=== PATIENT | female | born 2000 | race Caucasian/White ===

== ENCOUNTER 2019-06-07 19:09 | Emergency (ER) | payer OTHER, MEDICAID, SELFPAY ==
[2019-06-07 19:13] VITALS: BP 113/76; PULSE 95; RESP 16; TEMP 36.4; O2SAT 100; BMI 26.9
[2019-06-07 19:48] LABS: Amorphous Sediment Urine 1+; Bacteria Urine Moderate (10-30); Culture Indicated Urine Specimen Cultured; Mucus Urine 2+ (Negative); RBC Urine 0-1/HPF (0-5/HPF); Squamous Epithelial Cell Urine 1-5 /HPF (0-5/HPF); WBC Urine 5-10/HPF (0-5/HPF)
--- NOTE | 2019-06-07 20:25 | ED.PREGNANCY ---
HPI - General Chief complaint: OB/Uterine Contractions Stated complaint: 13 WKS CRAMPING Time Seen by Provider: 06/07/19 20:25 Source: patient Mode of arrival: Ambulatory Limitations: no limitations History of Present Illness HPI Narrative: The patient is , currently 13 weeks . She presents with lower abdominal cramping, specifically RLQ. She has nausea with decreased appetite. She has no emesis. She has no diarrhea constipation. She denies dysuria. She has had no vaginal discharge or vaginal bleeding. She denies fever chills. The pain has been ongoing, persistent. She was seen at [facility] yesterday with the same complaints. Ultrasound revealed a living 13 week IUP. It is noted that there was evidence of a bleed on a prior ultrasound, that concern has resolved. Related Data Previous Rx's Medication Instructions Recorded ketorolac 10 mg tablet 10 mg PO ONCE #7 tab 03/06/18 Allergies Allergy/AdvReac Type Severity Reaction Status Date / Time amoxicillin [From AUGMENTIN] Allergy Intermediate Rash Verified 03/06/18 19:34 Penicillins Allergy Intermediate Itchy Verified 03/06/18 19:34 clavulanic acid Allergy Unknown Verified 03/06/18 19:34 [From AUGMENTIN] Review of Systems Review of Systems ROS Unobtainable: All systems reviewed & are unremarkable except as noted in HPI and below Constitutional Constitutional: Denies chills, Denies fever(s), Denies lethargy and Denies weakness ENT Ears, Nose, Mouth, and Throat: Denies vertigo, Denies dizziness and Denies sore throat Cardiovascular Cardiovascular: Reports chest pain (Lower sternal), Denies irregular heart rhythm, Denies lightheadedness, Denies palpitations, Denies dyspnea and Denies orthopnea Respiratory Respiratory: Denies cough, Denies dyspnea and Denies wheezing Gastrointestinal Gastrointestinal: Reports abdominal pain (Epigastric pain. RLQ pain.), Denies change in bowel habits, Denies diarrhea, Denies nausea and Denies vomiting Musculoskeletal Musculoskeletal: Reports back pain (Right lumbar back.) Integumentary/Breasts Skin/Breast: Denies pruritus, Denies erythema, Denies rash and Denies wounds Neurologic Neurologic: Denies vertigo, Denies dizziness and Denies weakness Endocrine Endocrine: Denies palpitations Allergic/Immunologic Allergic/Immunologic: Denies wheezing PMFSH - Past Medical History Medical history: Reports no medical history Surgical history: Reports no surgical history Family History Family history: Reports no significant family history Exam Initial Vital Signs Initial Vital Signs: Vital Signs Temperature 97.6 F 06/07/19 19:13 Pulse Rate 95 H 06/07/19 19:13 Respiratory Rate 16 06/07/19 19:13 Blood Pressure 113/76 06/07/19 19:13 Pulse Oximetry 100 06/07/19 19:13 Const General: cooperative and well developed Nutritional Appearance: well nourished Orientation: alert, awake, oriented x3 and not confused [facility] Head: normocephalic and atraumatic Neck Neck: full ROM and No tender Chest Other: Xyphoid tenderness Resp Effort & Inspection: normal respiratory effort and able to speak in complete sentences Auscultation: clear to auscultation bilaterally, no rales, no rhonchi and no wheezes Cardio Rate: regular rate Rhythm: regular rhythm Heart Sounds: S1 normal, S2 normal, no click, no gallops, no murmurs and no rubs Pulses: normal peripheral pulses GI Palpation: soft and no hepatosplenomegaly Auscultation: normal bowel sounds Other: Epigastric tenderness at the xiphoid process, without guarding or rebound. Right lower quadrant tenderness without distention, guarding or rebound. FHT 166. Back/Spine/Pelvis Back: No CVA tenderness Skin General: no rashes or lesions noted and No petechiae Neuro General: alert, oriented x3, gait normal and no focal motor deficits Speech: speech normal Extrem General: full ROM, no clubbing, cyanosis or edema, no pedal edema and no calf tenderness Psych Appearance: well kempt Mental Status: mental status grossly normal Attitude: cooperative Thought Content: normal and suicidality Judgment: judgment good Course Course Course Narrative: She has ongoing epigastric pain, but nausea has lessened. Ultrasound indicates healthy IUP. Labs other than a slightly lower potassium otherwise normal. Orders Ordered: ED Orders 06/07/19 19:25 Urine Culture Stat Urine Microscopic Stat 06/07/19 20:40 Complete Blood Count AUTO DIFF Stat Comprehensive Metabolic Panel Stat Lipase Stat Discontinued Medications Acetaminophen (Tylenol) 650 mg PO NOW ONE Stop: 06/07/19 20:39 Last Admin: 06/07/19 20:52 Dose: 650 mg Documented by: JOE Sodium Chloride (Normal Saline 0.9%) 1,000 mls @ 1,000 mls/hr IV BOLUS ONE Stop: 06/07/19 21:37 Last Infusion: 06/07/19 21:51 Dose: 0 mls/hr Documented by: Admin: 06/07/19 20:52 Dose: 1,000 mls/hr Documented by: JOE Ondansetron HCl (Zofran) 4 mg IV NOW ONE Stop: 06/07/19 20:39 Last Admin: 06/07/19 20:52 Dose: 4 mg Documented by: JOE Vital Signs Vital signs: Vital Signs - 8 hr 06/07/19 19:13 Temperature 97.6 F Pulse Rate 95 H Respiratory Rate 16 Blood Pressure 113/76 Pulse Oximetry 100 MDM - OB/Uterine Contractions Lab Data Result diagrams: 06/07/19 20:40 06/07/19 20:40 Labs: Lab Results 06/07/19 06/07/19 06/07/19 Range/Units 19:25 20:40 20:40 WBC 9.9 (4.5-11.0) X10^3/uL RBC 4.28 (4.0-5.2) X10^6/uL Hgb 13.3 (12.0-16.0) g/dL Hct 38.1 (36-46) % MCV 88.9 (80-100) fL MCH 31.2 (26-34) PG MCHC 35.1 (30-36) % RDW 13.1 (11.6-14.8) % Plt Count 261 (150-400) X10^3/uL Neut % (Auto) 65.6 (50-75) % Lymph % (Auto) 24.8 L (25-40) % [place] % (Auto) 8.6 (3-14) % Eos % (Auto) 0.4 L (2-4) % Baso % (Auto) 0.6 (0-2) % Neut # (Auto) 6500 (3938-3956) /uL Lymph # (Auto) 2500 (3705-7927) /uL [place] # (Auto) 900 (0-900) /uL Eos # (Auto) 0 (0-450) /uL Baso # (Auto) 100 (0-100) /uL Sodium 137 (137-145) mmol/L Potassium 3.3 L (3.4-5.1) mmol/L Chloride 103 (98-107) mmol/L Carbon Dioxide 24 (22-32) mmol/L BUN 6 L (7-17) mg/dL Creatinine 0.40 L (0.52-1.04) mg/dL Estimated GFR > 60.0 (>60) mL/min BUN/Creatinine Ratio 15.0 (6-22) Glucose 80 (70-100) mg/dL Calcium 9.6 (8.4-10.2) mg/dL Total Bilirubin 0.4 (0.2-1.3) mg/dL AST 23 (14-36) IU/L ALT 13 (<35) IU/L Alkaline Phosphatase 40 (38-126) U/L Total Protein 7.5 (6.3-8.2) g/dL Albumin 4.4 (3.5-5.0) g/dL Globulin 3.1 (1.7-4.1) g/dL Albumin/Globulin Ratio 1.4 (1.0-2.8) Lipase 71 (23-300) U/L Urine RBC 0-1/hpf (0-5/HPF) Urine WBC 5-10/hpf H (0-5/HPF) Ur Squamous Epith Cells 1-5 /hpf (0-5/HPF) Amorphous Sediment 1+ Urine Bacteria Moderate (10-30) H (None) Urine Mucus 2+ H (Negative) Ur Culture Indicated? Specimen cultured Urine Dip Bedside Urine Glucose Negative Bedside Urine Bilirubin - Negative Bedside Urine Ketone +++ 80 Urine Specific [place] 1.015 Bedside Urine Occult Blood +/- Bedside Urine pH 6.0 Bedside Urine Protein - Negative Bedside Urine Urobilinogen - Negative Bedside Urine Nitrite - Negative Bedside Urine Leukocytes +++ 500 Esterase Discharge Plan Departure Patient Disposition: Home Clinical Impression: 13 weeks gestation of Instructions: DI for -- Discomforts and Remedies Activity Restrictions/Additional Instructions: Tylenol 2 tablets every 4 hours as needed for stomach ache. The pain that she were concerned about his chest pain is actually stomach pain. Be sure you are drinking plenty of fluids in eating well. Zofran every 4 hours as needed for nausea. You may also take Tums for stomach upset. Follow-up with her doctor next week for further evaluation if necessary. Prescriptions: No Action ketorolac 10 mg tablet 10 mg PO ONCE Qty: 7 RF: 0
[2019-06-07 20:50] LABS: Add Manual Diff / Slide Review NO; Basophils Absolute Auto 100 /uL (0-100); Basophils Percent Auto 0.6 % (0-2); Eosinophils Absolute Auto 0 /uL (0-450); Eosinophils Percent Auto 0.4 % (2-4); Hematocrit 38.1 % (36-46); Hemoglobin 13.3 g/dL (12.0-16.0); Lymphocytes Absolute Auto 2500 /uL (1100-4500); Lymphocytes Percent Auto 24.8 % (25-40); Mean Corpuscular HGB Conc 35.1 % (30-36); Mean Corpuscular Hemoglobin 31.2 PG (26-34); Mean Corpuscular Volume 88.9 fL (80-100); Monocytes Absolute Auto 900 /uL (0-900); Monocytes Percent Auto 8.6 % (3-14); Neutrophils Absolute Auto 6500 /uL (1500-7000); Neutrophils Percent Auto 65.6 % (50-75); Platelet Count 261 X10^3/uL (150-400); Red Blood Cell Count 4.28 X10^6/uL (4.0-5.2); Red Cell Distribution Width 13.1 % (11.6-14.8); White Blood Cell Count 9.9 X10^3/uL (4.5-11.0)
[2019-06-07] MEDS: ACETAMINOPHEN 325 MG TABLET 650 MG PO (20:52)
[2019-06-07] MEDS: SODIUM CHLORIDE 0.9% 1,000 ML 1000 ML IV (20:52)
[2019-06-07] MEDS: ONDANSETRON 4 MG/2 ML INJ IV (20:52)
[2019-06-07 20:59] LABS: Alanine Aminotransferase 13 IU/L (<35); Albumin 4.4 g/dL (3.5-5.0); Albumin Globulin Ratio 1.4 (1.0-2.8); Alkaline Phosphatase 40 U/L (38-126); Aspartate Aminotransferase 23 IU/L (14-36); Bilirubin Total 0.4 mg/dL (0.2-1.3); Blood Urea Nitrogen 6 mg/dL (7-17); Calcium 9.6 mg/dL (8.4-10.2); Carbon Dioxide 24 mmol/L (22-32); Chloride 103 mmol/L (98-107); Estimated Glomerular Filt Rate > 60.0 mL/min (>60); Globulin 3.1 g/dL (1.7-4.1); Glucose 80 mg/dL (70-100); HEMOLYSIS < 15 (0-50); Lipase 71 U/L (23-300); Potassium 3.3 mmol/L (3.4-5.1); Sodium 137 mmol/L (137-145); Total Protein 7.5 g/dL (6.3-8.2)
--- NOTE | 2019-06-07 21:38 | PC.NURSE ---
patient reports that she is still nauseous. has not vomited. provider notified and no new orders at this time.
[2019-06-07 22:20] VITALS: BP 104/68; PULSE 81; RESP 18; O2SAT 100
== END 2019-06-07 22:20 | disposition home or self-care (01) ==
PROVIDERS: Emergency Provider Emergency Medicine
DX: Z34.91 Encounter for supervision of normal pregnancy, unspecified, first trimester (principal); R10.9 Unspecified abdominal pain; Z3A.13 13 weeks gestation of pregnancy
CPT/HCPCS: 36415; 80053; 81003; 81015; 83690; 85025; 87077; 87086; 87186; 96361; 96374; 99283; 99284; J2405

== ENCOUNTER 2019-10-11 18:46 | Emergency (ER) | payer OTHER, MEDICAID, SELFPAY ==
[2019-10-11 18:50] VITALS: BP 110/78; PULSE 89; PULSE 98; RESP 20; TEMP 36.6; O2SAT 100; BMI 31.1
--- NOTE | 2019-10-11 19:09 | ED_ITS ---
HPI - Chest Pain General Chief Complaint: Chest Pain Stated Complaint: CHEST PAIN 31 WKS CRAMPING Time Seen by Provider: 10/11/19 18:54 Source: patient Mode of arrival: Ambulatory Limitations: no limitations History of Present Illness HPI narrative: 19-year-old female. Thirty-one weeks EGA. . Here for evaluation chest pain and lower abdominal cramping. Patient states that her chest pain is been off and on for the past several months. She states that occurs when her heart rate becomes fast and resolves when her heart rate returns normal. This has happened occasionally over the past several months. It occurred today. She stated that she has talk with her nurse air and missile defense crewmember that this following her . Patient states that ?my air and missile defense crewmember does not know what to do about it ?she states that she does have a consult in to see Cardiology but has not seen them up to this point. She is also complaining of lower abdominal pain. She states this is also been going on for least the past month. Has been off and on. Has been occurring today. No vaginal bleeding. No urinary symptoms. No loss of fluid. Related Data Previous Rx's Medication Instructions Recorded ketorolac 10 mg tablet 10 mg PO ONCE #7 tab 03/06/18 ondansetron HCl [Zofran] 4 mg PO Q6-8H PRN #20 tab 06/07/19 Allergies Allergy/AdvReac Type Severity Reaction Status Date / Time amoxicillin [From AUGMENTIN] Allergy Intermediate Rash Verified 03/06/18 19:34 Penicillins Allergy Intermediate Itchy Verified 03/06/18 19:34 clavulanic acid Allergy Unknown Verified 03/06/18 19:34 [From AUGMENTIN] Review of Systems Constitutional Constitutional: Denies fever(s) and Denies headache(s) ENT Ears, Nose, Mouth, and Throat: Denies headache(s) Cardiovascular Cardiovascular: Denies chest pain, Reports rapid heart rate, Reports palpitations and Denies dyspnea Respiratory Respiratory: Denies cough and Denies dyspnea Gastrointestinal Gastrointestinal: Reports cramping, Denies nausea and Denies vomiting Genitourinary Genitourinary: Denies dysuria Musculoskeletal Musculoskeletal: Denies myalgias and Denies arthralgias Integumentary/Breasts Skin/Breast: Denies lesions and Denies rash Neurologic Neurologic: Denies behavioral changes and Denies headache(s) Psychiatric Psychiatric: Denies behavioral changes Endocrine Endocrine: Reports palpitations Hematologic/Lymphatic Hematologic/Lymphatic: Denies easy bleeding and Denies easy bruising Patient History Medical History Patient denies medical problems (Acute) Social History Smoking Status: Former smoker Smoking Status: Former smoker alcohol intake frequency: holidays/special occasions only Substance Use Type: does not use Exam Initial Vital Signs Initial Vital Signs: Vital Signs Temperature 97.9 F 10/11/19 18:50 Pulse Rate 89 10/11/19 18:50 Respiratory Rate 20 10/11/19 18:50 Blood Pressure 110/78 10/11/19 18:50 Pulse Oximetry 100 10/11/19 18:50 Const General: cooperative, comfortable and well developed Limitations: mental status not altered HENMT Head: normal to inspection and normocephalic Resp Effort & Inspection: normal respiratory effort Auscultation: clear to auscultation bilaterally Cardio Rate: tachycardic Rhythm: regular rhythm Pulses: radial pulses present GI Palpation: soft Other: Gravid abdomen Skin Lesions: no lesions Rashes: no rashes Neuro General: alert and awake Cognition: normal cognition Speech: speech normal Extrem General: capillary refill normal Course Orders Ordered: ED Orders 10/11/19 18:51 EKG-12 Lead Stat Vital Signs Vital signs: Vital Signs - 8 hr 10/11/19 19:45 Pulse Rate 104 H Respiratory Rate 18 Blood Pressure 116/69 Pulse Oximetry 100 MDM - Chest Pain ECG Data Attestation: I personally reviewed and interpreted this ECG as follows: Prior ECG tracings: not available for review Interpretation: Sinus tachycardia Ventricular rate 107 Normal axis Normal QRS Normal QTC No ST T wave changes MDM Narrative Medical decision making narrative: I do have low suspicion that the patient's lower abdominal pain is pre term labor however given her gestational age she will be sent to Labor and delivery for further evaluation of this. Patient was slightly tachycardic however it does appear that her fast heart rate is not new. Her fast heart rate could very well be related to the fact that she is in her gestational age. Low suspicion for ACS. It appears that she has talk with her nurse air and missile defense crewmember about the symptoms and she is scheduled to follow-up with cardiology. Feel that Holter monitor and echocardiogram were not unreasonable however the studies can be performed as an outpatient. I did discuss return precautions and follow-up instructions. I feel the patient could be safely discharged home. She expressed understanding and agreement. Discharge Plan Departure Patient Disposition: Home Clinical Impression: Tachycardia Qualifiers: Weeks of gestation: 31 weeks Qualified Code(s): Z3A.31 - 31 weeks gestation of Discharge Date/Time: 10/11/19 19:46 Instructions: DI for Palpitations Activity Restrictions/Additional Instructions: I recommend that after discharge from the emergency department you proceed to the Labor and delivery Department here at the hospital for further evaluation of your lower abdominal cramping. I also recommend that you talk with your primary provider and/or your air and missile defense crewmember about your tachycardia. I do believe a consultation with Cardiology is not on warranted to discuss the indications for a Holter monitor and/or echocardiogram. Return to the emergency department for any new or worsening symptoms like we discussed Prescriptions: No Action ketorolac 10 mg tablet 10 mg PO ONCE Qty: 7 RF: 0 ondansetron HCl [Zofran] 4 mg tablet 4 mg PO Q6-8H PRN (Reason: nausea and vomiting) Qty: 20 RF: 0
[2019-10-11 19:45] VITALS: BP 116/69; PULSE 104; RESP 18; O2SAT 100
== END 2019-10-11 19:46 | disposition home or self-care (01) ==
PROVIDERS: Emergency Provider Emergency Medicine
DX: O26.93 Pregnancy related conditions, unspecified, third trimester (principal); R00.0 Tachycardia, unspecified; R10.9 Unspecified abdominal pain; R07.9 Chest pain, unspecified; Z3A.31 31 weeks gestation of pregnancy
CPT/HCPCS: 59025; 87086; 93005; 99283

== ENCOUNTER 2019-10-11 19:58 | Outpatient (CLI) | payer OTHER, MEDICAID, SELFPAY | END 2019-10-11 21:20 | disposition home or self-care (01) | LOC: OB 10-12 07:04 | PROVIDERS: Referring Provider Obstetrics & Gynecology; Visit Provider Obstetrics & Gynecology | DX: O26.893 Other specified pregnancy related conditions, third trimester (principal); R07.9 Chest pain, unspecified; Z3A.30 30 weeks gestation of pregnancy | CPT/HCPCS: 87086; G0378; G0379 ==

== ENCOUNTER → 2020-05-30 12:39 | Outpatient (CLI) | payer OTHER, MEDICAID, SELFPAY ==
--- NOTE | 2020-05-30 12:40 | DI.US.S_ITS ---
PROCEDURE: US OB LIMITED INDICATIONS: Cervical length OUTSIDE/PRIOR DATING DATA: Last menstrual period (LMP): Not available. LMP-based estimated date of delivery (EVON): Not available . First dating scan (date and location): Not available . Estimated date of delivery (EVON) from first dating scan: None available . TECHNIQUE: Real-time scanning was performed of the fetus, with image documentation. Endovaginal scanning: Not necessary COMPARISON: [facility], US, US OB >= 14 WEEKS FETUS, 05/12/2020, 15:26. FINDINGS: A single living intrauterine gestation is present. Presentation: Variable Placenta: Posterior placenta without previa. Amniotic fluid index: 8.8 cm, normal heart rate: 163 beats per minute Maternal cervical canal: 4.3 cm long. Normal lower limit is 2.5 cm. IMPRESSION: Limited evaluation at clinician request, no 1st trimester OB ultrasound comparison available for review. Cervical length is 4.3 cm without funneling. Posterior placenta. No previa found. Dictated by: Jose Cortez M.D. on 05/30/2020 at 14:58 Approved by: Jose Cortez M.D. on 05/30/2020 at 15:02
== END ==
PROVIDERS: PCP Obstetrics & Gynecology; Referring Provider Obstetrics & Gynecology; Visit Provider Obstetrics & Gynecology
DX: Z36.86 Encounter for antenatal screening for cervical length (principal); Z3A.16 16 weeks gestation of pregnancy
CPT/HCPCS: 76815

== ENCOUNTER 2020-09-21 11:35 | Observation (INO) | payer OTHER, MEDICAID, SELFPAY ==
[2020-09-21 13:25] LABS: RBC Urine None Seen (0-5/HPF)
[2020-09-21 13:30] LABS: Appearance Urine UA CLEAR; Bilirubin Urine UA NEGATIVE (NEGATIVE); Color Urine UA YELLOW; Glucose Urine UA NEGATIVE (Negative); Ketones Urine UA NEGATIVE (NEGATIVE); Leukocyte Esterase Urine UA 1+ (NEGATIVE); Nitrite Urine UA NEGATIVE (Negative); Occult Blood Urine UA NEGATIVE (Negative); Protein Urine UA NEGATIVE (Negative); Specific Gravity Urine UA 1.015 (1.000-1.035); Urobilinogen Urine UA 0.2 E.U./dL (0.2)
[2020-09-21 13:31] LABS: pH Urine UA 7.5 (4.5-8.0)
[2020-09-21 13:37] LABS: Amorphous Sediment Urine 1+; Bacteria Urine Occasional (0-1); Culture Indicated Urine Specimen Cultured; Squamous Epithelial Cell Urine 0-1 /HPF (0-5/HPF); WBC Urine 1-5/HPF (0-5/HPF)
== END 2020-09-21 13:50 | disposition home or self-care (01) ==
PROVIDERS: Admitting Provider Family Medicine; PCP Obstetrics & Gynecology; Referring Provider Family Medicine; Visit Provider Family Medicine
DX: O26.893 Other specified pregnancy related conditions, third trimester (principal); Z3A.31 31 weeks gestation of pregnancy; M54.89 Other dorsalgia; V49.60XA Unspecified car occupant injured in collision with unspecified motor vehicles in traffic accident, initial encounter
CPT/HCPCS: 59025; 59050; 81001; 87086; G0378; G0379

== ENCOUNTER 2020-11-07 01:01 | Outpatient (CLI) | payer OTHER, MEDICAID, SELFPAY | END 2020-11-07 02:25 | disposition home or self-care (01) | LOC: LABOR 04:36 → OB 07:28 | PROVIDERS: PCP Obstetrics & Gynecology; Referring Provider Midwife; Visit Provider Obstetrics & Gynecology | DX: O26.893 Other specified pregnancy related conditions, third trimester (principal); M54.5 Low back pain; R07.89 Other chest pain; Z3A.38 38 weeks gestation of pregnancy | CPT/HCPCS: 59025; G0378; G0379 ==

== ENCOUNTER 2021-01-18 17:47 | Emergency (ER) | payer OTHER, MEDICAID, SELFPAY ==
[2021-01-18 18:03] VITALS: BP 130/82; PULSE 90; RESP 15; TEMP 36.6; O2SAT 98; BMI 29.2
--- NOTE | 2021-01-18 18:05 | DI.RAD.S_ITS ---
PROCEDURE: XR CHEST 1V INDICATIONS: chest pain TECHNIQUE: One view of the chest was acquired. COMPARISON: [facility], , CHEST 1 VIEW, 02/14/2017, 20:41. FINDINGS: Surgical changes and devices: Ventriculoperitoneal shunt catheter is present. Lungs and pleura: Lungs are clear. No pleural effusions or pneumothorax. Mediastinum: Mediastinal contours appear normal. Heart size is normal. Bones and chest wall: No suspicious bony lesions. Overlying soft tissues appear unremarkable. IMPRESSION: No acute process. Dictated by: Michelle Woodall M.D. on 01/18/2021 at 19:05 Approved by: Michelle Woodall M.D. on 01/18/2021 at 19:05
[2021-01-18 18:28] LABS: Amorphous Sediment Urine 1+; Bacteria Urine Few (2-10); Culture Indicated Urine Specimen Cultured; Mucus Urine 1+ (Negative); RBC Urine 1-5/HPF (0-5/HPF); Squamous Epithelial Cell Urine 5-10 /HPF (0-5/HPF); WBC Urine 5-10/HPF (0-5/HPF)
[2021-01-18 18:51] LABS: Alanine Aminotransferase 40 IU/L (<35); Albumin 4.6 g/dL (3.5-5.0); Albumin Globulin Ratio 1.6 (1.0-2.8); Alkaline Phosphatase 48 U/L (38-126); Aspartate Aminotransferase 31 IU/L (14-36); BUN Creatinine Ratio 19.4 (6-22); Bilirubin Total 0.3 mg/dL (0.2-1.3); Blood Urea Nitrogen 13 mg/dL (7-17); Calcium 9.8 mg/dL (8.4-10.2); Carbon Dioxide 27 mmol/L (22-32); Chloride 106 mmol/L (98-107); Creatine Kinase 65 U/L (30-135); Estimated Glomerular Filt Rate > 60.0 mL/min (>60); Globulin 2.8 g/dL (1.7-4.1); Glucose 103 mg/dL (70-100); HEMOLYSIS < 15 (0-50); Lipase 101 U/L (23-300); Potassium 4.1 mmol/L (3.4-5.1); Sodium 143 mmol/L (137-145); Total Protein 7.4 g/dL (6.3-8.2)
[2021-01-18 19:03] LABS: Troponin I < 0.012 ng/mL (0.01-0.034)
[2021-01-18 19:18] LABS: Add Manual Diff / Slide Review NO; Basophils Absolute Auto 0 /uL (0-100); Basophils Percent Auto 0.4 % (0-2); Eosinophils Absolute Auto 100 /uL (0-450); Eosinophils Percent Auto 1.4 % (2-4); Hemoglobin 12.2 g/dL (12.0-16.0); Lymphocytes Absolute Auto 2500 /uL (1100-4500); Lymphocytes Percent Auto 31.8 % (25-40); Mean Corpuscular HGB Conc 33.9 % (30-36); Mean Corpuscular Hemoglobin 28.8 PG (26-34); Mean Corpuscular Volume 85.2 fL (80-100); Monocytes Absolute Auto 600 /uL (0-900); Monocytes Percent Auto 7.6 % (3-14); Neutrophils Absolute Auto 4700 /uL (1500-7000); Neutrophils Percent Auto 58.8 % (50-75); Platelet Count 274 X10^3/uL (150-400); Red Blood Cell Count 4.23 X10^6/uL (4.0-5.2); Red Cell Distribution Width 20.4 % (11.6-14.8)
[2021-01-18 20:11] LABS: Platelet Estimate Adequate on smear; RBC Morphology Normal Morphology
[2021-01-18 22:15] VITALS: O2SAT 98
[2021-01-18 22:16] VITALS: BP 124/86; PULSE 71; O2SAT 99
[2021-01-18 22:18] VITALS: BP 124/86; PULSE 76; TEMP 36.8; O2SAT 99
[2021-01-18 22:30] VITALS: PULSE 68; RESP 17; O2SAT 99
--- NOTE | 2021-01-18 22:58 | ED_ITS ---
HPI - Chest Pain General Chief Complaint: Chest Pain Stated Complaint: abd and chest pain, sent by [facility] Time Seen by Provider: 01/18/21 22:58 Source: patient Mode of arrival: Ambulatory Limitations: no limitations History of Present Illness HPI narrative: 20-year-old woman who is 4 months not currently br eastfeeding and had 2 deliveries within an 11 month. Presents with epigastric and right upper quadrant tenderness radiating up into her chest that she describes as a pressure/squeezing type feeling. She has had the pressure squeezing feeling intermittently over the number of years and has had cardiac workup for that including a Zio patch which indicated significant sinus arrhythmia but no other pathology. She describes no shortness of breath, associated nausea or diaphoresis. She reports no recent cough, headaches and no complaints palpitations. Related Data Allergies Allergy/AdvReac Type Severity Reaction Status Date / Time amoxicillin [From AUGMENTIN] Allergy Intermediate Rash Verified 01/18/21 18:03 clavulanic acid Allergy Intermediate Hive and Verified 01/18/21 18:03 [From AUGMENTIN] Nausea Penicillins Allergy Intermediate Itchy Verified 01/18/21 18:03 Review of Systems Review of Systems Narrative: Pertinent positive and negative findings as per HPI Remainder of review of systems is otherwise unremarkable for Constitutional: Fevers, chills, weakness ENT: No sore throat, neck pain, ear pain CV: Chest pain, palpitations, Respiratory: Cough, wheeze, dyspnea GI: Nausea, vomiting, diarrhea, : Dysuria, hematuria, Patient History Medical History 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 Able to give a complete and coherent history. Well-nourished well-developed HEENT: Moist mucous membranes, normal sclera with reactive pupils, Respiratory: Lungs are clear to auscultation, no wheezing no rales no rhonchi. Full and symmetrical air movement Cardiac: Regular rate and rhythm no murmurs no bruits Abdomen: Soft, mild tenderness in the epigastrium and right upper quadrant, go od bowel tones, no flank pain Skin: Warm and dry, no rashes Neurologic: Grossly neurologically intact with no obvious asymmetries or abnormalities Extremities: No trauma, well perfused Psych: Cooperative, appropriate insight and affect Bedside ultrasound shows a healthy appearing liver with mildly contracted gallbladder without evidence of gallstones Initial Vital Signs Initial Vital Signs: Vital Signs Temperature 97.8 F 01/18/21 18:03 Pulse Rate 90 01/18/21 18:03 Respiratory Rate 15 01/18/21 18:03 Blood Pressure 130/82 01/18/21 18:03 Pulse Oximetry 98 01/18/21 18:03 Course Orders Ordered: ED Orders 01/18/21 18:05 XR chest 1V Stat EKG-12 Lead Stat 01/18/21 18:07 Urine Culture Stat Urine Microscopic Stat 01/18/21 18:34 Complete Blood Count AUTO DIFF Stat Comprehensive Metabolic Panel Stat Lipase Stat Troponin & CK Cardiac Panel Stat Vital Signs Vital signs: Vital Signs - 8 hr 01/18/21 23:00 Pulse Rate 73 Respiratory Rate 26 H Pulse Oximetry 98 MDM - Chest Pain Medical Records Data Attestation: I reviewed the patient's medical records. Lab Data Attestation: I reviewed the patient's lab results. Result diagrams: 01/18/21 18:34 01/18/21 18:34 Labs: Lab Results 01/18/21 01/18/21 01/18/21 Range/Units 18:07 18:34 18:34 WBC 8.0 (4.5-11.0) X10^3/uL RBC 4.23 (4.0-5.2) X10^6/uL Hgb 12.2 (12.0-16.0) g/dL Hct 36.0 (36-46) % MCV 85.2 (80-100) fL MCH 28.8 (26-34) PG MCHC 33.9 (30-36) % RDW 20.4 H (11.6-14.8) % Plt Count 274 (150-400) X10^3/uL Neut % (Auto) 58.8 (50-75) % Lymph % (Auto) 31.8 (25-40) % [place] % (Auto) 7.6 (3-14) % Eos % (Auto) 1.4 L (2-4) % Baso % (Auto) 0.4 (0-2) % Neut # (Auto) 4700 (4908-0887) /uL Lymph # (Auto) 2500 (8803-7918) /uL [place] # (Auto) 600 (0-900) /uL Eos # (Auto) 100 (0-450) /uL Baso # (Auto) 0 (0-100) /uL Platelet Estimate Adequate on smear RBC Morphology Normal morphology Sodium 143 (137-145) mmol/L Potassium 4.1 (3.4-5.1) mmol/L Chloride 106 (98-107) mmol/L Carbon Dioxide 27 (22-32) mmol/L BUN 13 (7-17) mg/dL Creatinine 0.67 (0.52-1.04) mg/dL Estimated GFR > 60.0 (>60) mL/min BUN/Creatinine Ratio 19.4 (6-22) Glucose 103 H (70-100) mg/dL Calcium 9.8 (8.4-10.2) mg/dL Total Bilirubin 0.3 (0.2-1.3) mg/dL AST 31 (14-36) IU/L ALT 40 H (<35) IU/L Alkaline Phosphatase 48 (38-126) U/L Total Creatine Kinase 65 (30-135) U/L CK-MB (CK-2) TNP CK-MB (CK-2) Rel Index TNP Troponin I < 0.012 (0.01-0.034) ng/mL Total Protein 7.4 (6.3-8.2) g/dL Albumin 4.6 (3.5-5.0) g/dL Globulin 2.8 (1.7-4.1) g/dL Albumin/Globulin Ratio 1.6 (1.0-2.8) Lipase 101 (23-300) U/L Urine RBC 1-5/hpf (0-5/HPF) Urine WBC 5-10/hpf H (0-5/HPF) Ur Squamous Epith Cells 5-10 /hpf H (0-5/HPF) Amorphous Sediment 1+ Urine Bacteria Few (2-10) H (None) Urine Mucus 1+ H (Negative) Ur Culture Indicated? Specimen cultured Point of Care Testing Test Results Negative Urine Dip Bedside Urine Glucose Negative Bedside Urine Bilirubin - Negative Bedside Urine Ketone - Negative Urine Specific [place] 1.030 Bedside Urine Occult Blood +++ Bedside Urine Protein +/- 15 Bedside Urine Urobilinogen - Negative Bedside Urine Nitrite - Negative Bedside Urine Leukocytes + 70 Esterase Imaging Data Chest x-ray: Radiologist's Impression: FINDINGS: Surgical changes and devices: Ventriculoperitoneal shunt catheter is present. Lungs and pleura: Lungs are clear. No pleural effusions or pneumothorax. Mediastinum: Mediastinal contours appear normal. Heart size is normal. Bones and chest wall: No suspicious bony lesions. Overlying soft tissues appear unremarkable. IMPRESSION: No acute process. Dictated by: Michelle Woodall M.D. on 01/18/2021 at 19:05 ECG Data Attestation: I personally reviewed and interpreted this ECG as follows: Interpretation: Sinus rhythm at a rate of 91 Normal intervals, normal axis No acute ischemic changes MDM Narrative Medical decision making narrative: UA looks more like a contaminated sample, will await cultures prior to calling this a UTI. 20-year-old woman with right upper and epigastric abdominal pain. Given her 2 recent pregnancies with significant weight fluctuation over the last year she is at increased risk for gallbladder disease. No evidence of infection or obvious gallstones or obstruction at this time. Recommended that she call our health Resource Center to help her establish a primary care physician and follow-up regarding the intermittent episodes of right upper quadrant pain. She may benefit from a nuclear medicine study to rule out gallbladder dysfunction. At this point there is no evidence of sepsis or acute surgical needs. No evidence of acute coronary syndrome or pneumothorax. Patient is safe for home discharge Discharge Plan Departure Patient Disposition: Home Clinical Impression: Atypical chest pain Abdominal pain Qualifiers: Abdominal location: epigastric Qualified Code(s): R10.13 - Epigastric pain Instructions: DI for General Gallbladder Conditions, DI for Chest Pain Activity Restrictions/Additional Instructions: Thank you for coming in today I did not find anything life-threatening on your workup today. Your EKG does not suggest heart attack or heart attack like syndrome. Your blood work was reassuring Hemoglobin and hematocrits have improved nicely and there up to 12.2 and 36.0, urine longer anemic On bedside ultrasound I did not see an obviously inflamed gallbladder or gallstones. I am going to suggest that you follow-up with our health case resource manager at [phone] If things get worse, please feel free to return to the ER Referrals: Amirah Bernard MD [Primary Care Provider] -
[2021-01-18 23:00] VITALS: PULSE 73; RESP 26; O2SAT 98
== END 2021-01-18 23:27 | disposition home or self-care (01) ==
PROVIDERS: Emergency Medicine; Emergency Provider Emergency Medicine; PCP Obstetrics & Gynecology
DX: R07.89 Other chest pain (principal); R10.13 Epigastric pain
CPT/HCPCS: 36415; 71045; 80053; 81003; 81015; 81025; 82550; 83690; 84484; 85025; 87086; 93005; 93010; 99283; 99284

== ENCOUNTER → 2021-04-05 18:32 | Outpatient (CLI) | payer OTHER, SELFPAY ==
--- NOTE | 2021-04-05 18:34 | DI.RAD.S_ITS ---
PROCEDURE: XR KNEE LT 3V INDICATIONS: L medial knee pain post injury TECHNIQUE: 3 views of the knee were acquired. COMPARISON: None. FINDINGS: Bones: No fractures or dislocations. No suspicious bony lesions. Soft tissues: No joint effusion. No suspicious soft tissue calcifications. IMPRESSION: Negative examination. If the patient's pain or other symptoms persist, consider further evaluation with MRI Dictated by: Marshall Pickett M.D. on 04/06/2021 at 10:11 Approved by: Marshall Pickett M.D. on 04/06/2021 at 10:12
== END ==
PROVIDERS: Referring Provider Nurse Practitioner; Visit Provider Nurse Practitioner
DX: S89.92XA Unspecified injury of left lower leg, initial encounter (principal); M79.605 Pain in left leg; W19.XXXA Unspecified fall, initial encounter
CPT/HCPCS: 73562

== ENCOUNTER → 2021-05-10 18:13 | Outpatient (CLI) | payer OTHER, MEDICAID, SELFPAY ==
[2021-05-10 18:51] LABS: COVID19 -Nasal RAPID Negative (Negative)
== END ==
PROVIDERS: Referring Provider Nurse Practitioner; Visit Provider Nurse Practitioner
DX: Z20.822 Contact with and (suspected) exposure to COVID-19 (principal)
CPT/HCPCS: 87635; C9803

== ENCOUNTER → 2021-08-20 12:36 | Outpatient (CLI) | payer OTHER, MEDICAID, SELFPAY ==
--- NOTE | 2021-08-20 12:36 | DI.US.S_ITS ---
PROCEDURE: US PELVIC COMPLETE INDICATIONS: DYSMENORRHEA TECHNIQUE: Real-time scanning was performed of the pelvic organs, with image documentation. Additional endovaginal scanning was necessary due to incomplete visualization of the adnexal and endometrial structures by transabdominal scanning. COMPARISON: None. FINDINGS: Uterus: Uterus is anteverted and normal in size at 7.5 x 3.8 x 5.5 cm. The myometrium is homogeneous. The endometrium measures 8 mm combined thickness. No focal intrauterine abnormalities noted. Ovaries: The right ovary measures 2.4 x 1.6 x 1.8 cm, with a calculated ovarian volume of 3.5 cc. The left ovary measures 2.1 x 1.3 x 1.2 cm, with a calculated ovarian volume of 1.6 cc. The ovaries have a normal sonographic appearance. No adnexal masses are seen. Other: No pathologic free abdominal or pelvic fluid. IMPRESSION: Normal sonographic evaluation of pelvis. No uterine or ovarian abnormalities identified to explain patient's symptoms. We strive to produce accurate, complete, and clear reports of imaging services. To assist us in improving patient care, this report was composed using standard report templates and voice recognition software. Therefore, it may contain abnormal punctuation, insertions and/or omissions. Occasional wrong-word or sound-alike substitutions may occur. Though we review the report and make efforts to correct it, we do recommend that the report be read carefully in proper context to recognize any text inaccuracies. Dictated by: Christos Chu M.D. on 08/20/2021 at 13:17 Approved by: Christos Chu M.D. on 08/20/2021 at 13:20
== END ==
PROVIDERS: Referring Provider Specialist; Visit Provider Specialist
DX: N94.6 Dysmenorrhea, unspecified (principal); N92.0 Excessive and frequent menstruation with regular cycle
CPT/HCPCS: 76830; 76856

== ENCOUNTER 2021-10-20 04:35 | Emergency (ER) | payer OTHER, MEDICAID, SELFPAY ==
[2021-10-20 04:35] VITALS: BP 128/82; PULSE 108; RESP 18; TEMP 37.2; O2SAT 97; BMI 27.4
--- NOTE | 2021-10-20 04:50 | ED.URI ---
HPI - URI/Sore Throat General Chief Complaint: Upper Respiratory Symptoms Stated Complaint: Hard to swallow/chest pain Time Seen by Provider: 10/20/21 04:42 History of Present Illness HPI Narrative: 21-year-old female former smoker without significant medical problems presents with her mother and and chief complaint of multiple days of runny nose, nasal congestion, sneezing, dry cough and sore throat. She denies any fever or body aches. She denies chest pain, nausea or vomiting. She states that she is able to swallow liquids but foods seem to hurt. She is having no trouble controlling secretions or breathing. She was seen and evaluated a few days ago at a clinic and had a swab which was negative for strep. She has taken a few doses of antihistamines but nothing routine or regular. Related Data Home Medications Medication Instructions Recorded Confirmed No Known Home Medications 04/05/21 06/27/21 Allergies Allergy/AdvReac Type Severity Reaction Status Date / Time amoxicillin [From AUGMENTIN] Allergy Intermediate Rash Verified 06/27/21 15:10 clavulanic acid Allergy Intermediate Hive and Verified 06/27/21 15:10 [From AUGMENTIN] Nausea Penicillins Allergy Intermediate Itchy Verified 06/27/21 15:10 Review of Systems Review of Systems Narrative: GENERAL: Denies chills, fatigue, malaise, fever, sweats. HEENT: See HPI RESPIRATORY: See HPI CARDIOVASCULAR: Denies chest pain, palpitations, orthopnea, edema, GASTROINTESTINAL: Denies nausea, vomiting, abdominal pain, diarrhea, constipation, melena. : Denies dysuria, frequency, incontinence, hematuria, urinary retention. MUSCULOSKELETAL: denies weakness, joint pain, or bony pain SKIN: Denies rash, skin lesions, or other NEUROLOGIC: Denies weakness, headache, numbness, change in speech, confusion, seizures, incoordination. PSYCHIATRIC: No concerning psychosocial issues. 12 point review of systems is negative except for those stated above Patient History Medical History 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 Well-developed patient, in mild distress. HEAD: Atraumatic. Normocephalic. EYES: Pupils equal round and reactive. Extraocular motions intact. No scleral icterus. No injection or drainage. ENT: Moist mucous membranes Nose without bleeding, purulent drainage. Throat without erythema, tonsillar hypertrophy or exudate. Airway patent. NECK: Trachea midline. Non tender, no palpable lymphadenopathy, masses or swelling CARDIOVASCULAR: Regular rate and rhythm without murmurs, gallops, or rubs. RESPIRATORY: Clear to auscultation. Breath sounds equal bilaterally. No wheezes, rales, or rhonchi. GASTROINTESTINAL: Abdomen soft, non-tender, nondistended. EXTREMITIES: No edema or joint tenderness. BACK: Nontender without deformity or crepitance. No flank tenderness. NEURO: AOx3. SKIN: No rash or erythema of visible areas Initial Vital Signs Initial Vital Signs: Vital Signs Temperature 98.9 F 10/20/21 04:35 Pulse Rate 108 H 10/20/21 04:35 Respiratory Rate 18 10/20/21 04:35 Blood Pressure 128/82 10/20/21 04:35 Pulse Oximetry 97 10/20/21 04:35 Course Orders Ordered: ED Orders 10/20/21 05:03 Throat Culture Stat Vital Signs Vital signs: Vital Signs - 8 hr 10/20/21 04:35 Temperature 98.9 F Pulse Rate 108 H Respiratory Rate 18 Blood Pressure 128/82 Pulse Oximetry 97 MDM - URI/Sore Throat MDM Narrative Medical decision making narrative: Patient is very reassuring history and physical exam. Our rapid strep was negative and a culture was sent. We had an extensive bedside discussion about how in depth our evaluation could and should be. We discuss an IV with fluids, intravenous medications, labs and advanced imaging versus a more structured approach to the use of [id number] medications, reassurance, return precautions and close follow-up. After discussion of risks and benefits between myself the patient and her mother we agree to hold off on an IV and advanced imaging for now. Patient's questions answered to her apparent satisfaction and return precautions discussed Discharge Plan Departure Patient Disposition: Home Clinical Impression: Upper respiratory virus Instructions: DI for Viral Upper Respiratory Infection -- Adult Activity Restrictions/Additional Instructions: *You have been diagnosed with [viral upper respiratory infection. As we discussed her history and physical exam are very reassuring and there is no indication of of bacterial infection. Most severe symptoms are likely due to increased nasal secretions from an infection. *What to do: *Please consider taking a regular regimen of over the counter medications including antihistamines to dry secretions and anti-inflammatories to help with pain and swelling. *Please follow up with your primary care provider in 2-3 days, call for an appointment. Let them know you were seen in the Emergency Department and that we ask that you be seen in follow up. We will electronically transmit a record of today's note if your PCP is in our system *If you do not have a primary care provider please contact the [facility] Resource line at [phone]. They will ask some questions about your medical history and help get you set up with a doctor in the community. *Return to Emergency Department if you should have any new, worsening or concerning symptoms, such as [fever greater than 101 F, shaking chills, worsening pain, persistent vomiting or other bothersome symptoms] Prescriptions: No Action No Known Home Medications 0RF
[2021-10-20 05:16] VITALS: PULSE 92; RESP 18; O2SAT 98
== END 2021-10-20 05:17 | disposition home or self-care (01) ==
PROVIDERS: Emergency Provider Emergency Medicine
DX: J06.9 Acute upper respiratory infection, unspecified (principal); Z87.891 Personal history of nicotine dependence
CPT/HCPCS: 87070; 87147; 99281; 99282

== ENCOUNTER → 2022-04-12 15:45 | Outpatient (CLI) | payer OTHER, MEDICAID, SELFPAY ==
[2022-04-12 16:47] LABS: COVID19 -Nasal RAPID Negative (Negative)
== END ==
PROVIDERS: PCP Nurse Practitioner Family; Visit Provider Obstetrics & Gynecology
DX: Z20.822 Contact with and (suspected) exposure to COVID-19 (principal); Z01.812 Encounter for preprocedural laboratory examination
CPT/HCPCS: 87635; C9803

== ENCOUNTER 2022-04-15 10:47 | Day surgery (SDC) | payer OTHER, MEDICAID, SELFPAY ==
[2022-04-08 15:12] VITALS: BMI 28.1
[2022-04-15] VITALS (15 sets, daily range): BP systolic 99–115; BP diastolic 62–80; PULSE 63–89; RESP 12–18; TEMP 36.2–36.7; O2SAT 97–100; BMI 27.2
--- NOTE | 2022-04-15 | PATH_ITS ---
[facility] Accession Number: [id number] . 01 Material submitted: . peritoneum - LEFT CUL-DE-SAC PERITONEAL BIOPSY . 01 Clinical history: . A: R/O ENDOMETRIOSIS EXCISION R LABIAL REMNANT/DIAGNOSTIC LAPAROSCOPY P PELVIC AND PERINEAL PAIN DYSMENORRHEA, UNSPECIFIED UNSPECIFIED DYSPAREUNIA . 01 Diagnosis: Left Cul-de-sac Peritoneum, Biopsy: Fibroadipose tissue with dystrophic calcification. No changes diagnostic of endometriosis. MRV 04/18/2022 1258 Local . 01 Electronically signed: . Kamila West MD, Pathologist NPI- [id number] . 01 Gross description: . The specimen is received in formalin labeled with the patient's name and left cul-de-sac peritoneal, and consists of a single yellow-lopez soft tissue fragment measuring 0.4 x 0.2 x 0.1 cm. The specimen is submitted entirely in cassette A1. ([id number]) /ROMELIA 04/17/20222057 Local . 01 Pathologist provided ICD-10: R10.2 . 01 CPT . 138903 Performed at: 01 [facility] [address] [place] [address] [id number] MD Raj Pina MD Phone: [phone]
[2022-04-15 11:29] LABS: Add Manual Diff / Slide Review NO; Basophils Absolute Auto 100 /uL (0-100); Basophils Percent Auto 0.8 % (0-2); Eosinophils Absolute Auto 0 /uL (0-450); Eosinophils Percent Auto 0.7 % (2-4); Hemoglobin 13.7 g/dL (12.0-16.0); Lymphocytes Absolute Auto 2200 /uL (1100-4500); Lymphocytes Percent Auto 33.2 % (25-40); Mean Corpuscular HGB Conc 35.1 % (30-36); Mean Corpuscular Hemoglobin 31.1 PG (26-34); Mean Corpuscular Volume 88.7 fL (80-100); Monocytes Absolute Auto 500 /uL (0-900); Monocytes Percent Auto 7.1 % (3-14); Neutrophils Absolute Auto 3800 /uL (1500-7000); Neutrophils Percent Auto 58.2 % (50-75); Platelet Count 260 X10^3/uL (150-400); Red Blood Cell Count 4.39 X10^6/uL (4.0-5.2); Red Cell Distribution Width 12.7 % (11.6-14.8); White Blood Cell Count 6.6 X10^3/uL (4.5-11.0)
[2022-04-15] MEDS: LACTATED RINGERS 1,000 ML 42 ML IV (11:35)
[2022-04-15] MEDS: FAMOTIDINE 20 MG/2 ML VIAL IV (11:39)
--- NOTE | 2022-04-15 12:31 | PM.PREOP ---
Pre-operative Note COVID-19 COVID-19 status: Negative Result date/Date tested (Pos, Neg/Pending): 04/12/22 Criteria for continued procedure: Possibility delay results in more complex future surgery or treatment Interval Note History & Physical reviewed/Exam performed by Physician: Yes Changes to H&P: No
[2022-04-15] MEDS: CEFAZOLIN 2 GM/100 ML PREMIX 100 ML IV (13:02)
--- NOTE | 2022-04-15 13:18 | SUR.OPER ---
Lithotomy on padded OR bed, head on pillow, left arm secured on padded arm board at <90 degrees abduction, right arm padded at tucked at patient's side. Legs secured in padded yellow fins stirrups.
[2022-04-15] MEDS: BUPIVACAINE 0.5% W/ EPI (PF) 30 ML VIAL INJ (13:36)
--- NOTE | 2022-04-15 14:43 | P.OP_ITS ---
Operative Date/Time/Diagnoses Date of procedure: 04/15/22 Time of procedure: 13:30 Pre-op diagnosis: 1. Loose redundant portion of right labia after past obstetrical laceration 2. Severe cyclic pre-menstrual pain, severe dysmenorrhea Post-op diagnosis: same (Questionable focal endometriosis in cul-de-sac, biopsy done) Procedure & Clinicians Procedure: 1. Excision of right labial remnant 2. Diagnostic laparoscopy, left cul de sac peritoneal biopsy, focal fulguration of possible cul-de-sac endometriosis. Same procedure as scheduled: Yes Indications: 21 yo female with a a few cm long portion of right labia, detached from prior area of the laceration, causing discomfort when it catches in her pants or with intercourse with entry. She desires excision of the excess loose area. Area prior attachment, superior portion of other end of labial interruption is about 1.5 to2 cm inferior to clitoral spears. the labia is thinner in this area. Discussed with both areas being fully epithelialized, attempt at freshening up each end and reattaching would not likely lead to skin grown back together and thus recommended if she wanted to get rid of the longer pulling area, for excision of this disattached longer area back close to thebase of the labia.. Discussed she would the still have a gap in the right labia minora, but I coul d trim the longer area that pulls, gets caught for her. She did desire resection of the looser, longer un- attached inferior labial remnant. On review of her menstrual history, she had also reported severe dysmenorrhea starting 1 week prior to her menses, without improvement OCPs, and only partial improvement with Ortho Evra patch. She desired proceeding with diagnostic laparoscopy for evaluation of possible endometriosis. Surgeon: Marcella Bay Click Yes if Unassisted: Yes Anesthesia Type: General Operative Notes Findings: In the posterior cul-de-sac there were 3 small clear raised areas, possible clear endometriosis. Two areas were in the left cul-de-sac, near each other. The larger clear lesion was removed with the peritoneal biopsy. There was an adjacent area just superior to this area and another similar clear raised lesion just to the right of he midline in the cul-de-sac. Both the other 2 areas were coagulated. There were no other questionable areas of endometriosis. The right and left sides of the peritoneum, including in the area of the ovarian fossa were normal. The anterior cul-de-sac was normal with no signs of endometriosis. The uterus was normal size and shape and normal appearance. The tubes and ovaries bilaterally appeared normal, including the inferior surfaces of the ovaries. Closure Type: primary Specimen(s): other (Biopsy of left cul-de-sac peritoneum) Estimated Blood Loss (mL): 3 Blood products transfused: none Procedure in detail: After being properly identified she was taken to operating room. After an adequate level of general anesthesia was obtained, she was placed in the dorso- lithotomy position in Yan stirrups and prepped and draped in routine sterile fashion. Her bladder was sterilely drained with a rubber catheter with the prep. Time-out was taken and the patient and procedure was identified. Bimanual examination revealed a normal size mobile anteverted uterus. An open- sided speculum was placed in the vagina and the cervix was grasped with a ring forceps. A small dilator passed with ease. The uterus sounded to 6.5 cm. the [employer] intrauterine manipulator was placed in the balloon was insufflated. The ring forceps was removed. Attention was then placed abdominally where a small vertical infraumbilical incision was made after injection of approximately 1 mL of 0.5% Marcaine with epinephrine. Her abdomen was elevated and a Veress needle was placed. Drop test appeared to confirm intraperitoneal placement. Opening pressure was 1 mm mercury. However with insufflation the pressure quickly increased and only her lower abdomen appeared to be insufflating, appearing consistent with pre-peritoneal placement. The Veress needle was removed and the gas was pushed out of her subcutaneous tissue. The Veress needle was again placed with directing it this more directly beneath the umbilicus. Drop test was again performed and Veress needle appeared to be intraperitoneal. The gas was connected and opening and initial insufflation pressures appear consistent with intraperitoneal placement. The abdomen was insufflated with CO2 gas. The Veress needle was removed and a 5 mm Visiport trocar was placed under direct visualization. Camera was placed and intraperitoneal placement confirmed. Inferior to the trocar site appeared atraumatic. There were no visible abdominal or pelvic adhesions. On inspection the upper abdomen the were no adhesions. The liver appeared normal. Attention was placed back inferiorly. The uterus was elevated with the intrauterine manipulator and appeared normal. At this time a secondary 5 mm trocar was placed in her right lower abdomen under direct visualization, after the skin was injected with local anesthesia. The patient was placed and Trendelenburg. The Zumi was used to elevate the uterus. A blunt probe was placed and the uterus was pushed back out of the pelvis and the pelvis was inspected with the above findings. An additional 5 mm trocar was placed in her left lower abdomen, through a small incision after injection with local anesthesia. attention was placed to the focal clear raise peritoneal lesions in the posterior cul-de-sac for excisional biopsy. The uterus was elevated. The bowel was pushed back out of the abdomen. Using a [place] grasper the clear lesion and adjacent peritoneum was elevated away from the sidewall. The bipolar Endo Radha were used and an excision was made at the base of the elevated peritoneum Using coagulation on the scissors. The excised peritoneal biopsy which included the clear lesion was handed off as specimen. Inspection of the small circular peritoneal defect revealed hemostas is. A clear raised lesion, approximately 1/8 cm size just superior to this area was coagulated with the flat tips of the closed scissors. A similar single clear area just to the right of midline was coagulated as well with 1 touch with the flat tips of the scissors. There were no other clear raised lesions and no other areas that looked like endometriosis through the pelvis. Using a syringe, a few ml of bloody fluid was suctioned from the anterior and posterior cul-de-sac, Which had been present at the start of the procedure after trocar placement.The laparoscopy portion the procedure was thus ended. The abdomen was desufflated and repeat inspection of the area of the peritoneal biopsy revealed continued hemostasis. The uterus was placed back down. The bowel was allowed to come back into the pelvis. The abdomen was then further desufflated and the trocars were removed. The incisions were closed with subcuticular suture of 4-0 Monocryl. Steri-Strips and dressings were placed. Attention was placed vaginally where the Zumi balloon was desufflated and the Zumi was removed from the uterus. Speculum was placed and small amount of blood was wiped from the cervix. Attention was then placed to the right labia. The loose portion on her inferior right labia minora was grasped. The base of the loose area to be excised was infiltrated with approximately 2 mL of 0.5% Marcaine with epinephrine. An excision was then made with Metzenbaum scissors across the base of the loose area, to excise the area close to the contiguous fold of the labia minora. The labia was somewhat thicker at the base of the loose tissue, and as expected there was some bleeding at the excised area. Once excised, the labial remnant was discarded. Using the Bovie an area of persistent bleeding was coagulated with overall hemostasis obtained with only a little bleeding at her inferior skin edge. A [id number] suture of 3-0 chromic was placed in the submucosal tissue around the area that had bled, to assure continued hemostasis since suspicion of a small vessel in this area. Hemostasis remained. The excisional area defect was then closed by reapproximating the skin with a subcuticular suture of 3-0 chromic. Good hemostasis remained. The procedure was ended. She tolerated the procedure well and went to recovery room in stable condition Complications: none Post-operative Condition: stable Disposition: PACU Plan for aftercare: discharged home
[2022-04-15] MEDS: OXYCODONE/ACETAMINOPHEN 5/325 TABLET 1 TAB PO (14:49)
[2022-04-15] MEDS: KETOROLAC 30 MG/ML VIAL IV (14:49)
[2022-04-15] MEDS: fentaNYL 100 MCG/2 ML INJ IV ×2 (14:56→15:10)
[2022-04-15] MEDS: OXYCODONE IR 5 MG TABLET PO (16:27)
--- NOTE | 2022-04-15 16:52 | SUR.PHASEII ---
Pt DC to home with mom. Steady on feet. Tolerated apple juice and sauce. Medicated for pain.
== END 2022-04-15 16:31 | disposition home or self-care (01) ==
PROVIDERS: PCP Nurse Practitioner Family; Referring Provider Obstetrics & Gynecology; Visit Provider Obstetrics & Gynecology
PROC: 0U5B4ZZ Destruction of Endometrium, Percutaneous Endoscopic Approach (ICD-10-PCS; CPT 58662; principal; 2022-04-15 12:15)
DX: N94.10 Unspecified dyspareunia (principal); N94.6 Dysmenorrhea, unspecified; L98.7 Excessive and redundant skin and subcutaneous tissue
CPT/HCPCS: 58662; 15839; 36415; 81025; 85025; 86850; 86900; 86901; J0690; J1100; J1885; J2250; J2405; J2704; J3010

== ENCOUNTER → 2022-04-17 10:13 | Outpatient (CLI) | payer OTHER, MEDICAID, SELFPAY ==
[2022-04-17 11:01] LABS: Hematocrit 36.4 % (36-46); Hemoglobin 12.6 g/dL (12.0-16.0); Mean Corpuscular HGB Conc 34.7 % (30-36); Mean Corpuscular Hemoglobin 31.2 PG (26-34); Mean Corpuscular Volume 89.9 fL (80-100); Platelet Count 256 X10^3/uL (150-400); Red Blood Cell Count 4.04 X10^6/uL (4.0-5.2); Red Cell Distribution Width 12.8 % (11.6-14.8); White Blood Cell Count 8.4 X10^3/uL (4.5-11.0)
== END ==
PROVIDERS: PCP Nurse Practitioner Family; Referring Provider Obstetrics & Gynecology; Visit Provider Obstetrics & Gynecology
DX: N92.1 Excessive and frequent menstruation with irregular cycle (principal)
CPT/HCPCS: 36415; 85027

== ENCOUNTER → 2022-05-09 11:32 | Outpatient (CLI) | payer OTHER, MEDICAID, SELFPAY ==
[2022-05-10 15:59] LABS: Candida species Negative (Negative); Gardnerella vaginalis Positive (Negative); Trichomoas vaginalis Negative (Negative)
== END ==
PROVIDERS: PCP Nurse Practitioner Family; Visit Provider Obstetrics & Gynecology
DX: N89.8 Other specified noninflammatory disorders of vagina (principal)
CPT/HCPCS: 87480; 87510; 87660

== ENCOUNTER 2023-08-10 23:06 | Emergency (ER) | payer OTHER, MEDICAID, SELFPAY ==
[2023-08-10 23:11] VITALS: PULSE 105; O2SAT 99
[2023-08-10 23:12] VITALS: BP 123/77; PULSE 106; O2SAT 99
[2023-08-10 23:16] VITALS: BP 123/77; PULSE 95; RESP 18; TEMP 36.2; O2SAT 99; BMI 28.2
--- NOTE | 2023-08-10 23:16 | ED.ABDPAIN ---
HPI - Abdominal Pain General Chief Complaint: Nausea/Vomiting/Diarrhea Stated Complaint: vomiting, abd pain Time Seen by Provider: 08/10/23 23:10 History of Present Illness HPI narrative: Patient is a 23-year-old female history of tachycardia presenting today with abdominal pain nausea and vomiting. She reports that 1 week ago she had right shoulder surgery. She has been taking Percocet off and on mostly at night just to help her sleep. She has been vomiting multiple times unable to keep anything down. No real diarrhea she is having some abdominal discomfort more on the left side. She has some bilateral back pain as well. Shoulder is itchy but not significantly tender. She feels a little dizzy a little lightheaded. Related Data Home Medications Medication Instructions Recorded Confirmed norelgestromin 150 mcg-e.estradiol 1 patch transdermal QWEEK 04/04/22 05/09/22 35 mcg/24 hr weekly transderm patch (Xulane) Previous Rx's Medication Instructions Recorded ibuprofen 600 mg tablet 600 mg PO Q6H PRN pain #30 tabs 04/15/22 oxycodone 5 mg tablet See Rx Instructions .Route 04/15/22 .COMPLEX PRN Mild or moderate pain #20 tabs medroxyprogesterone 5 mg tablet 5 mg PO BID #10 tabs 04/17/22 metoclopramide HCl 10 mg tablet 10 mg PO Q6H PRN nausea and 08/11/23 (Reglan) vomiting #20 tabs Allergies Allergy/AdvReac Type Severity Reaction Status Date / Time amoxicillin [From AUGMENTIN] Allergy Intermediate Rash Verified 05/09/22 10:07 clavulanic acid Allergy Intermediate Hive and Verified 05/09/22 10:07 [From AUGMENTIN] Nausea Penicillins Allergy Intermediate Itchy Verified 05/09/22 10:07 Patient History Medical History (Updated 08/11/23 @ 01:06 by Anneliese Muñoz DO) Anxiety and depression H. pylori infection H/O pyelonephritis AV block (~01/2020) Sinus tachycardia (~01/2020) HPV (human papilloma virus) anogenital infection (~03/2020) (spontaneous vaginal delivery) (~12/13/19) Migraine Patient denies medical problems Surgical History H/O wisdom tooth extraction (~09/2017) Family History Mother Diabetes mellitus Father Bradycardia Grandmother Breast cancer Diabetes mellitus Grandfather No problems noted. 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 special luis needs: No Smoking Status: Former smoker Tobacco: How many years used: 3 second hand exposure: No alcohol intake: current substance use type: does not use and marijuana (I used to smoke Pot stopped in 2018) Smoking Status: Former smoker alcohol intake frequency: holidays/special occasions only Substance Use Type: does not use Exam Initial Vital Signs Initial Vital Signs: Vital Signs Pulse Rate 105 H 08/10/23 23:11 Pulse Oximetry 99 08/10/23 23:11 Oxygen Delivery Method Room Air 08/10/23 23:11 GENERAL: Alert pleasant 23-year-old female HEENT: Head atraumatic,EOMI, pupils reactive, face symmetric, moist mucous membranes CARDIOVASCULAR: Regular rate and rhythm without murmurs, rubs or gallops. RESPIRATORY: Breath sounds equal bilaterally, no wheezes rales or rhonchi. ABDOMEN: Soft, mild lower abdominal pain greater left than right no guarding no rebound : No CVA tenderness EXTREMITIES: Normal range of motion, no clubbing or edema. Neurovascularly intact NEUROLOGICAL: Alert and oriented x4.Normal gait and speech. SKIN: Incision site of right shoulder dressing placed not saturated Course Orders Ordered: ED Orders 08/10/23 23:18 Complete Blood Count AUTO DIFF Stat Comprehensive Metabolic Panel Stat Lipase Stat 08/10/23 23:23 Urine Microscopic Stat 08/10/23 23:50 CT abdomen pelvis w con Stat Discontinued Medications Sodium Chloride (Normal Saline 0.9%) 1,000 mls @ 1,000 mls/hr IV BOLUS ONE Stop: 08/11/23 00:14 Last Admin: 08/10/23 23:20 Dose: 1,000 mls/hr Documented By: SB Ketorolac Tromethamine (Ketorolac 30 Mg/Ml Vial) 15 mg IV NOW ONE Stop: 08/10/23 23:16 Last Admin: 08/10/23 23:20 Dose: 15 mg Documented By: MALIK Ondansetron HCl (Ondansetron 4 Mg/2 Ml Inj) 4 mg IV NOW ONE Stop: 08/10/23 23:16 Last Admin: 08/10/23 23:22 Dose: 4 mg Documented By: MALIK Vital Signs Vital signs: Vital Signs - 8 hr 08/10/23 23:11 08/10/23 23:12 08/10/23 23:12 Temperature Pulse Rate 105 H 106 H Respiratory Rate Blood Pressure 123/77 Pulse Oximetry 99 99 Oxygen Delivery Method Room Air Room Air 08/10/23 23:16 08/10/23 23:28 08/10/23 23:28 Temperature 97.1 F L Pulse Rate 95 H 90 Respiratory Rate 18 Blood Pressure 123/77 119/71 Pulse Oximetry 99 100 Oxygen Delivery Method Room Air 08/10/23 23:30 08/10/23 23:31 08/10/23 23:31 Temperature Pulse Rate 90 81 Respiratory Rate 19 23 Blood Pressure 115/65 115/65 Pulse Oximetry 100 100 Oxygen Delivery Method 08/11/23 00:00 08/11/23 00:00 08/11/23 00:04 Temperature Pulse Rate 85 86 Respiratory Rate 23 Blood Pressure 100/74 Pulse Oximetry 100 Oxygen Delivery Method Room Air Blow By 08/11/23 00:23 08/11/23 00:23 08/11/23 00:30 Temperature Pulse Rate 86 Respiratory Rate 19 22 Blood Pressure 106/67 103/68 Pulse Oximetry 100 100 Oxygen Delivery Method Room Air 08/11/23 00:30 08/11/23 01:00 08/11/23 01:00 Temperature Pulse Rate 86 83 Respiratory Rate 21 23 Blood Pressure 101/72 Pulse Oximetry 97 98 Oxygen Delivery Method Room Air Room Air MDM - Abdominal Pain Lab Data 08/10/23 23:18 08/10/23 23:18 Labs: Lab Results 08/10/23 08/10/23 Range/Units 23:18 23:23 WBC 12.0 H (4.5-11.0) X10^3/uL RBC 4.71 (4.0-5.2) X10^6/uL Hgb 14.1 (12.0-16.0) g/dL Hct 41.4 (36-46) % MCV 87.9 (80-100) fL MCH 29.9 (26-34) PG MCHC 34.0 (30-36) % RDW 13.4 (11.6-14.8) % Plt Count 297 (150-400) X10^3/uL Neut % (Auto) 84.4 H (50-75) % Lymph % (Auto) 10.7 L (25-40) % [place] % (Auto) 4.0 (3-14) % Eos % (Auto) 0.6 L (2-4) % Baso % (Auto) 0.3 (0-2) % Neut # (Auto) 82270 H (3197-9843) /uL Lymph # (Auto) 1300 (2880-0570) /uL [place] # (Auto) 500 (0-900) /uL Eos # (Auto) 100 (0-450) /uL Baso # (Auto) 0 (0-100) /uL Sodium 138 (137-145) mmol/L Potassium 4.2 (3.4-5.1) mmol/L Chloride 103 (98-107) mmol/L Carbon Dioxide 24 (22-32) mmol/L BUN 14 (7-17) mg/dL Creatinine 0.52 (0.52-1.04) mg/dL Estimated GFR > 60 (>60) mL/min BUN/Creatinine Ratio 26.9 H (6-22) Glucose 101 H (70-100) mg/dL Calcium 9.7 (8.4-10.2) mg/dL Total Bilirubin 1.0 (0.2-1.3) mg/dL AST 34 (14-36) IU/L ALT 22 (<35) IU/L Alkaline Phosphatase 32 L (38-126) U/L Total Protein 8.4 H (6.3-8.2) g/dL Albumin 4.5 (3.5-5.0) g/dL Globulin 3.9 (1.7-4.1) g/dL Albumin/Globulin Ratio 1.2 (1.0-2.8) Lipase 60 (23-300) U/L Urine RBC 5-10/hpf H (0-5/HPF) Urine WBC 1-5/hpf (0-5/HPF) Ur Squamous Epith Cells 5-10 /hpf H (0-5/HPF) Urine Bacteria Few (2-10) H (None) Ur Culture Indicated? Cult not indicated Point of care testing: Point of Care Testing Test Results Negative Urine Dip Bedside Urine Glucose Negative Bedside Urine Bilirubin - Negative Bedside Urine Ketone ++ 40 Urine Specific [place] 1.020 Bedside Urine Occult Blood +++ Bedside Urine pH 6.5 Bedside Urine Protein +/- 15 Bedside Urine Urobilinogen - Negative Bedside Urine Nitrite - Negative Bedside Urine Leukocytes +/- [address] scan - abdomen/pelvis: Radiologist's Impression: PROCEDURE: CT ABDOMEN PELVIS W CON INDICATIONS: left lower quad pain with vomiting TECHNIQUE: After the administration of intravenous contrast, axial sections acquired from the lung bases to the pubic symphysis. Coronal and sagittal reformats were performed. For radiation dose reduction, the following was used: automated exposure control, adjustment of mA and/or kV according to patient size. COMPARISON: [facility] Ultrasound, US, US PELVIC COMPLETE WITH TRANSVAGINAL, 07/17/2023, 14:07. FINDINGS: Image quality: Diagnostic. Lower Chest: No significant findings. ABDOMEN: Liver: No solid mass. Gallbladder: No radiopaque gallstones or wall thickening. Biliary ducts: No biliary dilation. Pancreas: No ductal dilation. Spleen: Size is within normal limits. Adrenal Glands: No adrenal nodules. Kidneys and Ureters: No hydronephrosis. No solid mass. No complex renal cystic lesion which requires follow up. Stomach and Bowel: Normal colonic caliber, without significant wall thickening. Normal appendix. Peritoneum: No abnormal intraperitoneal fluid. No free air. Ventral Wall: No hernia. Abdominal Nodes: No retroperitoneal or mesenteric adenopathy by size criteria. Vessels: Aorta and inferior vena cava are normal in size. PELVIS: Pelvic Organs: Anteverted uterus. Bladder: Decompressed. No stone. Pelvic Nodes: No enlarged lymph nodes. Miscellaneous: No inguinal hernias are seen. Bones: No aggressive osseous abnormality. IMPRESSION: No acute abnormality identified. No free fluid. Dictated by: Axel Richards M.D. on 08/11/2023 at 0:49 MDM Narrative Medical decision making narrative: Patient is a healthy 23-year-old female green 70 vomiting lower pain. He has not had any nausea or vomiting here in the ED pain better after Toradol. Received 1 L of IV fluid Blood work reviewed she does have some leukocytosis 12 with mild left shift no significant electrolyte abnormality or ROSA, urinalysis does show hematuria with bacteria CT reviewed found At this time with nausea vomiting abdominal pain suspect gastroenteritis. Supportive care only. CT is reassuring evidence of obstruction diverticulitis nephrolithiasis. She has not having UTI symptoms culture not indicated for urinalysis. At this time supportive care only. Discharge Plan Departure Patient Disposition: Home Clinical Impression: Gastroenteritis Instructions: DI for Viral Gastroenteritis -- Adult Activity Restrictions/Additional Instructions: *You have been diagnosed with gastroenteritis *What to do: At this time increase fluids tolerated recommend Gatorade or Gatorade like product. *Continue to take medications as directed Reglan 10 mg every 6 hours if needed for nausea or vomiting *Follow up with your primary care provider in 2-3 days or call [phone] *Return to ER if you should have increasing abdominal pain persistent vomiting, [or] any new, worsening or concerning symptoms Prescriptions: New metoclopramide HCl [Reglan] 10 mg tablet 10 mg PO Q6H PRN (Reason: nausea and vomiting) Qty: 20 0RF No Action Xulane 150-35 mcg/24 hr patch weekly 1 patch transdermal QWEEK Rx Instructions: apply once weekly for 3 weeks of a 4-week cycle medroxyprogesterone 5 mg tablet 5 mg PO BID Qty: 10 0RF oxycodone 5 mg Tablet See Rx Instructions .ROUTE .COMPLEX PRN (Reason: Mild or moderate pain) Qty: 20 0RF Rx Instructions: 1 to 2 tabs every 4-6 hours as needed for pain ibuprofen 600 mg tablet 600 mg PO Q6H PRN (Reason: pain) Qty: 30 1RF Referrals: Love Gomez ARNP [Primary Care Provider] - Stand Alone Forms: Patient Portal/API
[2023-08-10] MEDS: SODIUM CHLORIDE 0.9% 1,000 ML 1000 ML IV (23:20)
[2023-08-10] MEDS: KETOROLAC 30 MG/ML VIAL 15 MG IV (23:20)
[2023-08-10] MEDS: ONDANSETRON 4 MG/2 ML INJ IV (23:22)
[2023-08-10 23:28] VITALS: BP 119/71; PULSE 90; O2SAT 100
[2023-08-10 23:30] VITALS: BP 115/65; PULSE 90; RESP 19; O2SAT 100
[2023-08-10 23:31] VITALS: BP 115/65; PULSE 81; RESP 23; O2SAT 100
[2023-08-10 23:32] LABS: Add Manual Diff / Slide Review NO; Basophils Absolute Auto 0 /uL (0-100); Basophils Percent Auto 0.3 % (0-2); Eosinophils Absolute Auto 100 /uL (0-450); Eosinophils Percent Auto 0.6 % (2-4); Hematocrit 41.4 % (36-46); Hemoglobin 14.1 g/dL (12.0-16.0); Lymphocytes Absolute Auto 1300 /uL (1100-4500); Lymphocytes Percent Auto 10.7 % (25-40); Mean Corpuscular Hemoglobin 29.9 PG (26-34); Mean Corpuscular Volume 87.9 fL (80-100); Monocytes Absolute Auto 500 /uL (0-900); Neutrophils Absolute Auto 10200 /uL (1500-7000); Neutrophils Percent Auto 84.4 % (50-75); Platelet Count 297 X10^3/uL (150-400); Red Blood Cell Count 4.71 X10^6/uL (4.0-5.2); Red Cell Distribution Width 13.4 % (11.6-14.8)
[2023-08-10 23:37] LABS: Alanine Aminotransferase 22 IU/L (<35); Albumin 4.5 g/dL (3.5-5.0); Albumin Globulin Ratio 1.2 (1.0-2.8); Alkaline Phosphatase 32 U/L (38-126); Aspartate Aminotransferase 34 IU/L (14-36); BUN Creatinine Ratio 26.9 (6-22); Blood Urea Nitrogen 14 mg/dL (7-17); Calcium 9.7 mg/dL (8.4-10.2); Carbon Dioxide 24 mmol/L (22-32); Chloride 103 mmol/L (98-107); Estimated Glomerular Filt Rate > 60 mL/min (>60); Globulin 3.9 g/dL (1.7-4.1); Glucose 101 mg/dL (70-100); Lipase 60 U/L (23-300); Sodium 138 mmol/L (137-145); Total Protein 8.4 g/dL (6.3-8.2)
[2023-08-10 23:48] LABS: HEMOLYSIS 79 (0-50)
[2023-08-10 23:49] LABS: Potassium 4.2 mmol/L (3.4-5.1)
--- NOTE | 2023-08-10 23:50 | DI.CT.S_ITS ---
PROCEDURE: CT ABDOMEN PELVIS W CON INDICATIONS: left lower quad pain with vomiting TECHNIQUE: After the administration of intravenous contrast, axial sections acquired from the lung bases to the pubic symphysis. Coronal and sagittal reformats were performed. For radiation dose reduction, the following was used: automated exposure control, adjustment of mA and/or kV according to patient size. COMPARISON: [facility] Ultrasound, US, US PELVIC COMPLETE WITH TRANSVAGINAL, 07/17/2023, 14:07. FINDINGS: Image quality: Diagnostic. Lower Chest: No significant findings. ABDOMEN: Liver: No solid mass. Gallbladder: No radiopaque gallstones or wall thickening. Biliary ducts: No biliary dilation. Pancreas: No ductal dilation. Spleen: Size is within normal limits. Adrenal Glands: No adrenal nodules. Kidneys and Ureters: No hydronephrosis. No solid mass. No complex renal cystic lesion which requires follow up. Stomach and Bowel: Normal colonic caliber, without significant wall thickening. Normal appendix. Peritoneum: No abnormal intraperitoneal fluid. No free air. Ventral Wall: No hernia. Abdominal Nodes: No retroperitoneal or mesenteric adenopathy by size criteria. Vessels: Aorta and inferior vena cava are normal in size. PELVIS: Pelvic Organs: Anteverted uterus. Bladder: Decompressed. No stone. Pelvic Nodes: No enlarged lymph nodes. Miscellaneous: No inguinal hernias are seen. Bones: No aggressive osseous abnormality. IMPRESSION: No acute abnormality identified. No free fluid. Dictated by: Axel Richards M.D. on 08/11/2023 at 0:49 Approved by: Axel Richards M.D. on 08/11/2023 at 0:53
[2023-08-11] VITALS: BP 100/74; PULSE 85; RESP 23; O2SAT 100
[2023-08-11 00:02] LABS: RBC Urine 5-10/HPF (0-5/HPF); WBC Urine 1-5/HPF (0-5/HPF)
[2023-08-11 00:03] LABS: Bacteria Urine Few (2-10); Culture Indicated Urine Cult Not Indicated; Squamous Epithelial Cell Urine 5-10 /HPF (0-5/HPF)
[2023-08-11 00:04] VITALS: PULSE 86
[2023-08-11 00:23] VITALS: BP 106/67; PULSE 86; RESP 19; RESP 22; O2SAT 100
[2023-08-11 00:30] VITALS: BP 103/68; PULSE 86; RESP 21; O2SAT 97
[2023-08-11 01:00] VITALS: BP 101/72; PULSE 83; RESP 23; O2SAT 98
== END 2023-08-11 01:19 | disposition home or self-care (01) ==
PROVIDERS: Emergency Provider Emergency Medicine; PCP Nurse Practitioner Family
DX: K52.9 Noninfective gastroenteritis and colitis, unspecified (principal); R11.2 Nausea with vomiting, unspecified
CPT/HCPCS: 36415; 74177; 80053; 81003; 81015; 81025; 83690; 85025; 96361; 96374; 96375; 99284; J1885; J2405; Q9967

== ENCOUNTER → 2023-10-21 17:42 | Outpatient (CLI) | payer OTHER, MEDICAID, SELFPAY | PROVIDERS: PCP Nurse Practitioner Family; Visit Provider Student in an Organized Health Care Education/Training Program | DX: R30.0 Dysuria (principal) | CPT/HCPCS: 81002; 87077; 87086; 87186 ==